=== PATIENT | male | born 1935 | race Caucasian/White ===

== ENCOUNTER 2024-01-14 12:35 | Inpatient (IN) | payer MEDICARE ==
[~2024-01-14] VITALS: Ht 170.2 cm; Wt 56.7 kg
[2024-01-14] MEDS ORDERED: ATOR20TA PO (14:32)
[2024-01-14] MEDS ORDERED: QUET25TA PO (14:32)
[2024-01-14] MEDS ORDERED: METO25TA4 PO (14:32)
[2024-01-14] MEDS ORDERED: ESCI5TAB PO (14:32)
[2024-01-14] MEDS ORDERED: MAGNESIUM HYDROXIDE 30 ML UDC PO PRN (17:30)
[2024-01-14] MEDS ORDERED: MAG HYDROX/AL HYDROX/SIMETH 30 ML UDC PO PRN (17:30)
[2024-01-14] MEDS ORDERED: ACETAMINOPHEN 325 MG TABLET PO PRN (17:30)
[2024-01-14] MEDS ORDERED: LORAZEPAM 0.5 MG TABLET PO PRN (17:30)
[2024-01-14] MEDS: BLOOD SUGAR DIAGNOSTIC 1 EACH STRIP IN ONE (17:30)
[2024-01-14 18:00] VITALS: BP 129/84; TEMP 97.9; O2SAT 97
[2024-01-14 20:00] VITALS: BP 125/65; TEMP 98.5; O2SAT 100
[2024-01-14] MEDS: ATORVASTATIN 10 MG TABLET PO SCH (22:02)
[2024-01-15 08:00] VITALS: BP 141/62; TEMP 97.7; O2SAT 100
[2024-01-15] MEDS: METOPROLOL SUCCINATE 25 MG TAB.SR.24H PO SCH (08:45)
[2024-01-15 15:50] LABS: ALANINE AMINOTRANSFERASE 22 U/L (12-78); ALBUMIN 3.4 g/dL (3.4-5.0); ALKALINE PHOSPHATASE 98 U/L (46-116); ASPARTATE AMINOTRANSFERASE 18 U/L (15-37); BILIRUBIN,TOTAL 0.5 mg/dL (0.2-1.0); CALCIUM, SERUM 8.9 mg/dL (8.5-10.1); CARBON DIOXIDE 31 mmol/L (21-32); CHLORIDE 104 mmol/L (98-107); CREATININE 0.7 mg/dL (0.6-1.3); GLUCOSE 101 mg/dL (74-106); POTASSIUM 4.1 mmol/L (3.5-5.1); SODIUM SERUM 140 mmol/L (136-145); TOTAL PROTEIN, SERUM 7.4 g/dL (6.4-8.2); UREA NITROGEN, BLOOD 24 mg/dL (7-18)
[2024-01-15 15:52] LABS: CHOLESTEROL 135 mg/dL (<200); HDL CHOLESTEROL 56 mg/dL (40-60); LDL 66 mg/dL (0-99); TRIGLYCERIDES 75 mg/dL (30-150)
[2024-01-15 16:00] VITALS: BP 136/60; TEMP 98; O2SAT 96
[2024-01-15 20:00] VITALS: BP 141/64; TEMP 97.7; O2SAT 97
[2024-01-15] MEDS: QUETIAPINE FUMARATE 25 MG TABLET PO SCH (21:08)
[2024-01-15] MEDS: TEMAZEPAM 7.5 MG CAPSULE PO PRN (23:35)
[2024-01-16 08:00] VITALS: BP 142/62; TEMP 98.6; O2SAT 96
[2024-01-16] MEDS ORDERED: Z GUARD REMEDY 4 OZ OINT TP PRN (09:00)
[2024-01-16] MEDS: Z GUARD REMEDY 4 OZ OINT TP SCH (09:31)
[2024-01-16 16:06] VITALS: BP 105/67; TEMP 98.4; O2SAT 98
[2024-01-16 20:14] VITALS: BP 134/69; TEMP 98.1; O2SAT 97
[2024-01-17 08:00] VITALS: BP 112/54; TEMP 97.6; O2SAT 100
[2024-01-17 16:00] VITALS: BP 117/62; TEMP 98.6; O2SAT 100
[2024-01-17 20:22] VITALS: BP 102/86; TEMP 98.2; O2SAT 98
[2024-01-18 08:00] VITALS: BP 106/83; TEMP 97.8; O2SAT 98
[2024-01-18 16:05] VITALS: BP 112/63; TEMP 98.1; O2SAT 98
[2024-01-18 20:39] VITALS: BP 120/77; TEMP 98; O2SAT 99
[2024-01-19 08:00] VITALS: BP 115/52; TEMP 97.7; O2SAT 98
[2024-01-19 16:00] VITALS: BP 119/92; TEMP 98.1; O2SAT 100
[2024-01-19 21:01] VITALS: BP 115/65; TEMP 98; O2SAT 97
[2024-01-20 08:25] VITALS: BP 83/47; TEMP 97.3; O2SAT 97
[2024-01-20 16:00] VITALS: BP 115/71; TEMP 98.6; O2SAT 99
[2024-01-20 20:00] VITALS: BP 123/59; TEMP 97.7; O2SAT 98
[2024-01-21 08:00] VITALS: BP 127/71; TEMP 97.9; O2SAT 98
[2024-01-21 08:16] VITALS: BP 127/71
== END 2024-01-21 10:25 | DRG 885 ==
LOC: ER 12:40 → GPS 15:48
PROVIDERS: ADMIT Nurse Practitioner Psychiatric/Mental Health; ATTEND Internal Medicine
DX: F29 Unspecified psychosis not due to a substance or known physiological condition (principal); F03.92 Unspecified dementia, unspecified severity, with psychotic disturbance; F03.911 Unspecified dementia, unspecified severity, with agitation; I10 Essential (primary) hypertension; I25.10 Atherosclerotic heart disease of native coronary artery without angina pectoris; I48.91 Unspecified atrial fibrillation; E78.5 Hyperlipidemia, unspecified; Z95.5 Presence of coronary angioplasty implant and graft; Z79.899 Other long term (current) drug therapy; Z20.822 Contact with and (suspected) exposure to COVID-19; Z86.73 Personal history of transient ischemic attack (TIA), and cerebral infarction without residual deficits
CPT/HCPCS: 36415; 71045-TC; 80053-TC; 80061-TC; 82962-TC